=== PATIENT | male | born 1950 | race Caucasian/White ===

== ENCOUNTER 2017-06-17 10:00 | Outpatient (RCR) | payer MEDICARE, BC | END 2017-06-21 | LOC: ST 10:00 | PROVIDERS: ATTEND Family Medicine Geriatric Medicine | DX: I69.922 Dysarthria following unspecified cerebrovascular disease (principal); R47.81 Slurred speech | CPT/HCPCS: 92507; 92523; 97110; 97139; 97161; G8978; G8979; G8980; G8999; G9186 ==

== ENCOUNTER 2017-06-22 09:55 | Outpatient (RCR) | payer MEDICARE, BC | END 2017-07-22 | LOC: ST 09:55 | PROVIDERS: ATTEND Family Medicine Geriatric Medicine | DX: I63.9 Cerebral infarction, unspecified (principal); R47.81 Slurred speech; G25.81 Restless legs syndrome; I10 Essential (primary) hypertension; Z87.442 Personal history of urinary calculi | CPT/HCPCS: 97110; 97139; 97165; G8987; G8988 ==

== ENCOUNTER → 2017-07-13 | Outpatient (CLI) | payer MEDICARE, BC ==
--- NOTE | 2017-07-13 18:20 | Diagnostic Imaging Report ---
PROCEDURE:X-RAY MODIFIED BARIUM SWALLOW COMPARISON:None. INDICATIONS:Not provided. DISCUSSION:Fluoroscopic examination was performed in conjunction with speech pathology, during swallowing of a variety of thin and thick liquid consistencies. Examination is spillage to the vallecula and base of tongue with all consistencies. Premature spillage to the piriform sinus was noted with thin liquids, and juice portion of mixed, mechanical soft diet. Shallow penetration into the laryngeal vestibule was noted with thin liquids. No aspiration. Mild to moderate vallecular residue following swallows of thick and thin pure. Mild following swallows of other consistencies. CONCLUSION:Mild pharyngeal dysphagia characterized by consistent premature spillage to the level of the vallecula, trace penetration into the laryngeal vestibule with thin liquids and trace pharyngeal residue after the swallow.. Please see the report from speech pathology for complete details. Tom Krause M.D. Dictated by: Tom Krause M.D. on 07/13/2017 at 18:22 Electronically approved by: Tom Krause M.D. on 07/13/2017 at 18:22
== END ==
LOC: DX 09:38
PROVIDERS: ATTEND Family Medicine Geriatric Medicine
CPT/HCPCS: 74230

== ENCOUNTER 2017-08-19 09:00 | Outpatient (RCR) | payer MEDICARE, BC | END 2017-08-21 | LOC: ST 09:00 | PROVIDERS: ATTEND Family Medicine Geriatric Medicine | DX: R13.12 Dysphagia, oropharyngeal phase (principal); I63.9 Cerebral infarction, unspecified; R47.81 Slurred speech; I10 Essential (primary) hypertension; G25.81 Restless legs syndrome; Z87.442 Personal history of urinary calculi ==

== ENCOUNTER 2017-09-03 09:00 | Outpatient (RCR) | payer MEDICARE, BC | END 2017-09-21 | LOC: ST 09:00 | PROVIDERS: ATTEND Family Medicine Geriatric Medicine | DX: I63.9 Cerebral infarction, unspecified (principal); R13.12 Dysphagia, oropharyngeal phase; R47.81 Slurred speech | CPT/HCPCS: 92526 ×6; G8996; G8997 ==